=== PATIENT | male | born 1970 | race Caucasian/White ===

== ENCOUNTER 2019-06-27 02:54 | Inpatient (IN) | payer OTHER ==
[~2019-06-27] VITALS: Ht 180.3 cm; Wt 99.8 kg
[2019-06-27 02:54] VITALS: BP 133/105
--- NOTE | 2019-06-27 02:54 | NUR ---
PT BIB [facility], PREBOOK. TAKEN TO CHAIR E
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
--- NOTE | 2019-06-27 03:00 | NUR ---
PT STATED THAT HE DOES NOT KNOW THE NAMES OF THE MEDICATIONS THAT HE TAKES
--- NOTE | 2019-06-27 03:06 | NUR ---
PT MOVED TO BED 11
--- NOTE | 2019-06-27 04:00 | NUR ---
PT LAYING IN BED SLEEPING, AROUSABLE TO NAME, RR EVEN AND UNLABORED. VSS. ALL NEEDS MET.
[2019-06-27 04:06] LABS: BASOPHILS % (AUTO) 0.6 % (0.0-2.0); EOSINOPHILS # (AUTO) 0.1 K/uL (0-0.4); HEMATOCRIT 45.6 % (36-52); HEMOGLOBIN 15.5 g/dL (12.0-18.0); LYMPHOCYTES # (AUTO) 2.1 K/uL (2.0-11.5); LYMPHOCYTES % (AUTO) 32.7 % (20.5-51.1); MEAN CORPUSCULAR HEMOGLOBIN 31 pg (27-31); MEAN CORPUSCULAR HGB CONC 34 g/dL (33-37); MEAN CORPUSCULAR VOLUME 91.2 fL (80-94); MONOCYTES # (AUTO) 0.6 K/uL (0.8-1.0); NEUTROPHILS # (AUTO) 3.6 K/uL (1.8-7.7); NEUTROPHILS % (AUTO) 55.7 % (42.2-75.2); PLATELET COUNT (AUTO) 245 K/uL (140-450); RED CELL DISTRIBUTION WIDTH 13.5 % (11.6-13.7); WHITE BLOOD COUNT (AUTO) 6.6 K/uL (4.8-10.8)
[2019-06-27 04:18] LABS: ANION GAP 16.1 (8-16); CARBON DIOXIDE 22.8 mmol/L (21-32); POTASSIUM 3.9 mmol/L (3.5-5.1)
[2019-06-27 04:24] LABS: ALBUMIN 3.6 g/dL (3.4-5.0); TOTAL BILIRUBIN 0.4 mg/dL (0.0-1.0)
--- NOTE | 2019-06-27 05:10 | NUR ---
PT LAYING IN BED, RR EVEN AND UNLABORED. PT REPORTS 8/10 L SIDED CP WITH NO FACIAL GRIMACING, NO RESTLESSNESS. VSS. ALL NEEDS MET.
[2019-06-27] MEDS ORDERED: diphenhydrAMINE 50 MG/ML VIAL IVP PRN (05:55)
[2019-06-27] MEDS ORDERED: ONDANSETRON 4 MG/2 ML VIAL IVP PRN (05:55)
[2019-06-27] MEDS ORDERED: cloNIDine 0.1 MG TAB PO PRN ×2 (05:55→18:15)
[2019-06-27] MEDS ORDERED: POTASSIUM CHLORIDE 10 MEQ TABER PO PRN (05:55)
[2019-06-27] MEDS ORDERED: MAGNESIUM OXIDE 400 MG TAB PO PRN (05:55)
[2019-06-27] MEDS ORDERED: ACETAMINOPHEN 650 MG SUPP RC PRN (05:55)
[2019-06-27] MEDS ORDERED: ACETAMINOPHEN 325 MG TAB PO PRN (05:55)
[2019-06-27] MEDS ORDERED: IPRATROPIUM 0.02% 0.5 MG/2.5 ML NEBU INH PRN (05:55)
[2019-06-27] MEDS ORDERED: HYDROcodone/APAP 5/325 MG 1 TAB TAB PO PRN ×2 (05:55)
[2019-06-27] MEDS: NACL 0.9% 1,000 ML IV SCH ×2 (05:55→20:13)
[2019-06-27] MEDS ORDERED: ALUMINUM HYD/MAG/SIMETHICONE 30 ML UDC PO PRN (05:55)
[2019-06-27] MEDS ORDERED: LORazepam 2 MG/ML VIAL IVP PRN (05:55)
[2019-06-27] MEDS ORDERED: POTASSIUM CHLORIDE 40 MEQ, LIDOCAINE 1% 25 MG in NACL 0.9% 250 ML IV PRN (05:55)
[2019-06-27] MEDS ORDERED: MAG SULF 2000 MG/WATER PREMIX 50 ML IV PRN (05:55)
[2019-06-27] MEDS ORDERED: MORPHINE SULFATE 2 MG/ML SYR IVP PRN (05:55)
[2019-06-27] MEDS ORDERED: ZOLPIDEM 5 MG TAB PO PRN (05:55)
[2019-06-27] MEDS ORDERED: ALBUTEROL 0.083% 2.5 MG/3 ML NEBU INH PRN (05:55)
[2019-06-27] MEDS ORDERED: BISACODYL 10 MG SUPP RC PRN (05:55)
[2019-06-27] MEDS ORDERED: DOCUSATE SODIUM 250 MG GELCAP PO PRN (05:55)
[2019-06-27] MEDS ORDERED: SODIUM PHOSPHATE 118 ML ENEM RC PRN (05:55)
[2019-06-27] MEDS ORDERED: guaiFENesin DM 200/20 MG-10 ML 10 ML UDC PO PRN (05:55)
--- NOTE | 2019-06-27 06:17 | NUR ---
Patient will be admitted to care of DR NICOLE. Admited to TELE. Will go to room 108A. Belongings list completed. Report to PRINCESS CROOKS.
--- NOTE | 2019-06-27 06:20 | NUR ---
RECEIVED BEDSIDE REPORT FROM ED RN MARICEL, FOR PATIENT'S CONTINUITY OF CARE. PATIENT IS ADMITTED FOR CHEST PAIN AND ETOH DIAGNOSIS. PATIENT IS ALERT, AWAKE, ORIENTED X 4. PATIENT IS ON ROOM AIR, HAS RIGHT FOREARM 20G SALINE LOCK. TROPONIN LEVEL IS NEGATIVE. SPEAKS PRIMARILY ALBANIAN, AND CROATIAN. ALLERGIES TO ATORVASTATIN. PATIENT WAS CHANGED TO YELLOW GOWN AND SOCKS. FALL AND SEIZURE PREVENTION AND PRECAUTION STARTED AND IMPLEMENTED. VITAL SIGNS ARE FF: T 97.7; BP 140/91; O2 96%; HR 83; RR 16. WILL ENDORSE TO AM SHIFT RN FOR CONTINUITY OF CARE.
--- NOTE | 2019-06-27 07:31 | NUR ---
Received bed side report from shift supervisor RN, pt seen sleeping on RA in no resp distress. Will put on IV Fluid NS at 70cc/hr per MD order. Urine sample collected and at bedside. Per shift supervisor RN, she collected it at 0630. MRSA already swapped. Fall risk sign posted, yellow socks on, gown on, will continue to monitor
--- NOTE | 2019-06-27 09:13 | NUR ---
Pt sleeping, arousable. Pt A/O x4. Told pt to pee into specimen cup for urine culture. Pt verbalized understanding, will continue to monitor.
[2019-06-27 10:16] VITALS: BP 125/79
[2019-06-27 11:41] LABS: BARBITURATE, URINE NEG. ng/ml (NEG <=200); BENZODIAZEPINE, URINE NEG. ng/mL (NEG <=200); CANNABINOID, URINE NEG. ng/mL (NEG <=50); COCAINE, URINE NEG. ng/mL (NEG <=300); OPIATE, URINE NEG. ng/mL (NEG <=2000); PHENCYCLIDINE SCREEN,URINE NEG. ng/mL (NEG <=25)
--- NOTE | 2019-06-27 11:49 | NUR ---
Pt's temp 100.3 Checked 3x, will give Tylenol per MD order
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
[2019-06-27 12:00] VITALS: BP 155/86
--- NOTE | 2019-06-27 12:01 | NUR ---
Paged for an order for humalog sliding scale. pt's blood sugar 162
--- NOTE | 2019-06-27 12:48 | NUR ---
Pt's temp now 99.7
[2019-06-27] MEDS ORDERED: METF1000 PO (14:21)
[2019-06-27] MEDS ORDERED: WARF-18 PO (14:21)
[2019-06-27] MEDS ORDERED: ASPI-1677 PO (14:21)
[2019-06-27] MEDS ORDERED: ATOR10TA PO (14:21)
[2019-06-27] MEDS ORDERED: METO25TA PO (14:21)
--- NOTE | 2019-06-27 14:22 | NUR ---
Pt does not clearly remember dosing but does remember meds he takes. Will update med recon.
--- NOTE | 2019-06-27 14:22 | NUR ---
Med Rec not done by ER d/t pt being ETOH in ER. Pt now more awake. A/O X4. Pt told me his home meds that he takes. Per weigh and charge worker Linda, she said to do med recon and page to ask if he still wants to continue home meds. Paged earlier for order for Humalog Sliding Scale. Will page again
[2019-06-27] MEDS ORDERED: INSULIN LISPRO SLIDING SCALE 100 UNITS/ML VIAL SUBQ PRN (14:55)
[2019-06-27] MEDS ORDERED: DEXTROSE 50% 50 ML SYR IVP PRN (14:55)
--- NOTE | 2019-06-27 15:02 | NUR ---
Per , ordered Humalog sliding scale, Abboject, and resuscitation status. Per pt, he wants compression, meds, intubation, BiPAP, but no cardioversion and defib d/t pacemaker.
--- NOTE | 2019-06-27 16:45 | NUR ---
Paged d/t BP 147/97, no home meds transferred by doctor and no prn bp med available at this time. Blood sugar 144. No insulin coverage needed at this time.
[2019-06-27 17:12] VITALS: BP 147/97
--- NOTE | 2019-06-27 18:34 | NUR ---
just ordered clonidine 0.1mg Q6H PRN for systolic >167. Pt's BP 167/96. Will give clonidine.
--- NOTE | 2019-06-27 19:31 | NUR ---
Gave bed side report from production shift supervisor RN. Pt zacarias.
--- NOTE | 2019-06-27 19:32 | NUR ---
RECEIVED BEDSIDE REPORT FROM DAY SHIFT NURSE. NO SOB OR ANY RESPIRATORY DISTRESS NOTED. PATIENT IS ALERT, AWAKE, ORIENTED X 4. PATIENT IS ON ROOM AIR, HAS RIGHT FOREARM 20G, PATENT, INTACT AND ASYMPTOMATIC. SKIN INTACT, WARM AND DRY TO TOUCH. ALLERGIES TO ATORVASTATIN. FALL AND SEIZURE PREVENTION IN PLACE. POC REVIEWED AND DISCUSSED WITH PT. PT VERBALIZED UNDERSTANDING. BOARD UPDATED. BED IN LOW POSITION. CALL LIGHT WITHIN REACH.
[2019-06-27 20:00] VITALS: BP 157/98
--- NOTE | 2019-06-27 20:00 | NUR ---
VS CHECKED, 157/98, 98.2F, 97%, 88, 18, 0/10. WILL CONTINUE TO MONITOR.
--- NOTE | 2019-06-27 22:00 | NUR ---
PT SLEEPING IN BED. NO ACUTE DISTRESS NOTED.
[2019-06-28] VITALS: BP 121/77
--- NOTE | 2019-06-28 | NUR ---
VS CHECKED, 98.0, 121/77, 61, 95%, 0/10, 18. BED IN LOW POSITION. CALL LIGHT WITHIN REACH.
--- NOTE | 2019-06-28 02:20 | NUR ---
PT SLEEPING IN BED. BREATHING EVEN AND UNLABORED.
[2019-06-28 04:00] VITALS: BP 126/81
--- NOTE | 2019-06-28 04:05 | NUR ---
VS CHECKED, WITHIN NORMAL RANGE. NO ACUTE DISTRESS NOTED. WILL CONTINUE TO MONITOR.
--- NOTE | 2019-06-28 06:00 | NUR ---
BS CHECKED. 132, NO INSULIN COVERAGE NEEDED.
--- NOTE | 2019-06-28 07:07 | NUR ---
ENDORSED PT TO DAY SHIFT NURSE. PT IN STABLE CONDITION.
--- NOTE | 2019-06-28 07:08 | NUR ---
RECEIVED REPORT FROM ORDER PROCESSOR NURSE. PATIENT LYING DOWN IN BED SLEEPING, AROUSABLE BY VOICE. NO DISTRESS NOTED. COMPLAINS OF LEFT SHOULDER MUSCLE SORENESS PAIN, TOLERABLE AT THIS TIME. AAOX4, CALM, COOPERATIVE, SKIN COLOR APPROPRIATE TO ETHNICITY. HAS LEFT KNEE BRUISE, SKIN INTACT. IV SITE INTACT, PATENT, AND INFUSING IVF PER MD ORDERS. ABDOMEN SOFT, NON-DISTENDED. REVIEWED PLAN OF CARE WITH PATIENT. PATIENT VERBALIZED UNDERSTANDING. SAFETY MEASURES IN PLACE, CALL LIGHT WITHIN REACH. WILL CONTINUE TO MONITOR.
[2019-06-28 08:00] VITALS: BP 147/89
--- NOTE | 2019-06-28 08:48 | NUR ---
PATIENT HAS BEEN SCREENED AND CATEGORIZED MODERATE NUTRITION RISK. PATIENT WILL BE SEEN WITHIN 3-5 DAYS OF ADMISSION. 06/29/[address]
--- NOTE | 2019-06-28 09:00 | NUR ---
DR. NICOLE AT BEDSIDE REVIEWING PLAN OF CARE WITH PATIENT. WILL CONTINUE TO MONITOR.
[2019-06-28 10:24] LABS: PROTHROMBIN TIME 12.4 secs (10.8-13.4)
[2019-06-28] MEDS: NACL 0.9% 1,000 ML IV SCH (10:46)
--- NOTE | 2019-06-28 11:00 | NUR ---
DR. HEIDY Babcock AT BEDSIDE REVIEWING PLAN OF CARE WITH PATIENT. WILL CONTINUE TO MONITOR.
[2019-06-28] MEDS ORDERED: BLOOD GLUCOSE MONITORING 1 DEV DEV FS SCH (11:30)
[2019-06-28 12:00] VITALS: BP 141/91
--- NOTE | 2019-06-28 12:35 | NUR ---
INSULIN COVERAGE GIVEN FOR LUNCH PER MD ORDERS. PER DR. HEIDY Babcock, PATIENT OK TO GO HOME WITH FOLLOW-UP WITH PATIENT'S OWN NOODLE MAKER. NOTIFIED PATIENT. PER PATIENT LIVES [place] [address] AND WILL WALK HOME WHEN READY DUE TO HIS CAR BEING TOWED. WILL PREPARE DISCHARGE PAPERS AND INSTRUCTION. WILL CONTINUE TO MONITOR.
--- NOTE | 2019-06-28 13:15 | NUR ---
CALLED OFFICE OF DR MONROY [phone] SPOKE TO AMY, FOLLOW-UP APPOINTMENT MADE ON 07/13/19 AT 1015 AM, AT [id number], [place] [address]. SCHEDULE OF APPOINTMENT INFO GIVEN TO PT., VERBALIZED UNDERSTANDING.
--- NOTE | 2019-06-28 13:41 | NUR ---
DISCHARGE INSTRUCTIONS PROVIDED TO PATIENT. INSTRUCTIONS ON FOLLOW-UP VISIT WITH PCP AND AUTOMOTIVE PROJECT ENGINEER, NEW/CHANGED MEDICATIONS, DIET REGIMEN, AND AVOID DRINKING TOO MUCH ETOH PROVIDED. ANSWERED ALL OF PATIENT'S QUESTIONS REGARDING DISCHARGE. IV SITE REMOVED WITH MINIMAL BLOOD AND LUMEN COMPLETELY INTACT. ID BANDS REMOVED. PATIENT TO GET DRESSED THEN DISCHARGE TO HOME VIA AMBULATION. PATIENT REPORT HE WILL WALK HOME HIS HOUSE IS RIGHT [address]OSS [address].
--- NOTE | 2019-06-28 13:50 | NUR ---
PATIENT ALL DRESSED AND READY TO GO. ALL BELONGINGS WITH PATIENT. ESCORTED PATIENT DOWN TO LOBBY VIA STEADY AMBULATION. PATIENT DISCHARGED AT THIS TIME TO HOME IN STABLE CONDITION.
[2019-06-28] MEDS ORDERED: WARFARIN 5 MG TAB PO SCH (17:00)
== END 2019-06-28 13:50 | disposition home or self-care (01) | DRG 198 ==
LOC: MED 02:54 → MTU 05:57
PROVIDERS: ADMIT Internal Medicine; ATTEND Internal Medicine
DX: R07.89 Other chest pain (principal); I25.10 Atherosclerotic heart disease of native coronary artery without angina pectoris; E11.65 Type 2 diabetes mellitus with hyperglycemia; I42.0 Dilated cardiomyopathy; E66.9 Obesity, unspecified; E78.5 Hyperlipidemia, unspecified; F10.10 Alcohol abuse, uncomplicated; I10 Essential (primary) hypertension; Y90.2 Blood alcohol level of 40-59 mg/100 ml; F10.129 Alcohol abuse with intoxication, unspecified; Z95.2 Presence of prosthetic heart valve; Z95.1 Presence of aortocoronary bypass graft; Z68.30 Body mass index [BMI] 30.0-30.9, adult; Z88.8 Allergy status to other drugs, medicaments and biological substances; Z79.82 Long term (current) use of aspirin; Z79.01 Long term (current) use of anticoagulants; Z79.84 Long term (current) use of oral hypoglycemic drugs; Z95.810 Presence of automatic (implantable) cardiac defibrillator
CPT/HCPCS: 36415; 71045; 80053; 80305; 82948; 84484; 85025; 85610; 87081; 93005; 99285; G0482; J1815; J7030; Q0092

== ENCOUNTER 2019-11-25 14:27 | Emergency (ER) | payer OTHER ==
[~2019-11-25] VITALS: Ht 175.3 cm; Wt 98.9 kg
[~2019-11-25 14:27] MED LIST: ASPI-1884 PO; METF1000 PO; METO25TA PO; WARF-18 PO
[2019-11-25 15:00] VITALS: BP 130/90
--- NOTE | 2019-11-25 15:03 | NUR ---
to lobby a/w bed ambulatory
--- NOTE | 2019-11-25 16:33 | NUR ---
PT REPORTING FEELING DIZZY, BROUGHT PT TO [facility] FOR ASSESSMENT, VSS, PT REPORTS 10/10 PAIN IN LT FACE. PLACED PT IN WHEEL CHAIR W/ SEATBELT CONNECTED FOR SAFETY. PT WHEELED BACK TO LOBBY
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
[2019-11-25] MEDS ORDERED: VANCOMYCIN 1,000 MG in DEXTROSE 5% 250 ML IV ONE (17:55)
[2019-11-25] MEDS ORDERED: MORPHINE SULFATE 4 MG/ML SYR IVP ONE (17:55)
[2019-11-25] MEDS ORDERED: PIPERACILLIN/TAZOBACTAM 3.375 GM in DEXTROSE 5% 50 ML IV ONE (17:55)
[2019-11-25] MEDS ORDERED: NACL 0.9% 1,000 ML IV ONE (17:55)
--- NOTE | 2019-11-25 17:59 | NUR ---
PT RESTING IN BED, NO NEW NEEDS AT THIS TIME.
[2019-11-25] MEDS ORDERED: PIPERACILLIN/TAZOBACTAM 3.375 GM VIAL IV ONE (18:16)
[2019-11-25 18:41] LABS: BASOPHILS % (AUTO) 0.3 % (0.0-2.0); EOSINOPHILS % (AUTO) 0.4 % (0.0-4.0); HEMOGLOBIN 15.2 g/dL (12.0-18.0); LYMPHOCYTES # (AUTO) 1.4 K/uL (2.0-11.5); LYMPHOCYTES % (AUTO) 14.8 % (20.5-51.1); MEAN CORPUSCULAR HEMOGLOBIN 30 pg (27-31); MEAN CORPUSCULAR HGB CONC 33 g/dL (33-37); MEAN CORPUSCULAR VOLUME 91.5 fL (80-94); MONOCYTES % (AUTO) 9.9 % (1.7-9.3); NEUTROPHILS # (AUTO) 7.3 K/uL (1.8-7.7); NEUTROPHILS % (AUTO) 74.6 % (42.2-75.2); PLATELET COUNT (AUTO) 233 K/uL (140-450); RED BLOOD CELL COUNT(AUTO) 5.03 MIL/uL (4.20-6.10); RED CELL DISTRIBUTION WIDTH 13.2 % (11.6-13.7); WHITE BLOOD COUNT (AUTO) 9.8 K/uL (4.8-10.8)
[2019-11-25] MEDS ORDERED: VANCOMYCIN 1,000 MG VIAL ONE (18:59)
[2019-11-25 19:00] LABS: ANION GAP 12.5 (8-16); CARBON DIOXIDE 26.2 mmol/L (21-32); POTASSIUM 3.7 mmol/L (3.5-5.1)
[2019-11-25 19:05] LABS: ALBUMIN 3.5 g/dL (3.4-5.0); TOTAL BILIRUBIN 0.7 mg/dL (0.0-1.0)
[2019-11-25 19:07] LABS: PROTHROMBIN TIME 16.4 secs (10.8-13.4)
--- NOTE | 2019-11-25 19:09 | NUR ---
PT SIGNED TRANSFER CONSENT
--- NOTE | 2019-11-25 19:30 | NUR ---
Patient to be transferred to [facility]. Is being transferred due to NEED FOR ENT/HIGHER LEVEL OF CARE. Receiving facility has accepting physician and available space. ER physician has signed transfer form. Patient or responsible green party has agreed to transfer and signed form. Patient belongings inventoried and will be sent with patient. Copy of nursing notes, lab reports, EKG, Physicians Orders and X-rays to be sent with patient. Report called to VALERIY DEAN at receiving facility.
--- NOTE | 2019-11-25 19:30 | NUR ---
Note undone in EDM - 11/25/19 at 1949 by MED1 Patient to be transferred to [facility]. Is being transferred due to INSURANCE. Receiving facility has accepting physician and available space. ER physician has signed transfer form. Patient or responsible democrat has agreed to transfer and signed form. Patient belongings inventoried and will be sent with patient. Copy of nursing notes, lab reports, EKG, Physicians Orders and X-rays to be sent with patient. Report called to VALERIY DEAN at receiving facility.
[2019-11-25 19:45] LABS: APPEARANCE,URINE CLEAR (CLEAR); BILIRUBIN,URINE NEGATIVE (NEGATIVE); BLOOD, URINE NEGATIVE (NEGATIVE); COLOR,URINE YELLOW (YELLOW); LEUKOCYTE ESTERASE ,URINE NEGATIVE (NEGATIVE); NITRITE, URINE NEGATIVE (NEGATIVE); UGLUCOSE 3+ (NEGATIVE)
[2019-11-25 19:47] VITALS: BP 154/80
== END 2019-11-25 19:30 | disposition short-term general hospital (02) ==
LOC: MED 14:27
DX: K04.7 Periapical abscess without sinus (principal); L03.211 Cellulitis of face; E11.9 Type 2 diabetes mellitus without complications; I10 Essential (primary) hypertension; E78.5 Hyperlipidemia, unspecified; Z86.69 Personal history of other diseases of the nervous system and sense organs; Z95.0 Presence of cardiac pacemaker; Z79.82 Long term (current) use of aspirin; Z79.899 Other long term (current) drug therapy; Z79.01 Long term (current) use of anticoagulants; Z88.8 Allergy status to other drugs, medicaments and biological substances
CPT/HCPCS: 36415; 80053; 81003; 83605; 85025; 85610; 85730; 87040; 87086; 96365; 96368; 96375; 99285; J2270; J2543; J3370; J7030

== ENCOUNTER 2022-05-02 04:40 | Emergency (ER) | payer OTHER ==
[~2022-05-02] VITALS: Ht 175.3 cm; Wt 108.9 kg
[~2022-05-02 04:40] MED LIST changes: +ASPI-1749 PO; -ASPI-1884 PO; +METF-1274 PO; -METF1000 PO; -WARF-18 PO; +WARF-83 PO
--- NOTE | 2022-05-02 04:40 | NUR ---
PT [facility], PREBOOK. TAKEN TO BED 10
[2022-05-02 04:48] VITALS: BP 145/77
[2022-05-02] MEDS ORDERED: NACL 0.9% 1,000 ML IV ONE (05:00)
--- NOTE | 2022-05-02 05:02 | NUR ---
Dr. Abreu examining patient.
[2022-05-02 05:41] LABS: BASOPHILS # (AUTO) 0.1 K/uL (0.00-0.22); EOSINOPHILS # (AUTO) 0.1 K/uL (0-0.4); EOSINOPHILS % (AUTO) 2.1 % (0.0-4.0); HEMATOCRIT 44.9 % (36-52); HEMOGLOBIN 15.1 g/dL (12.0-18.0); LYMPHOCYTES # (AUTO) 1.8 K/uL (2.0-11.5); LYMPHOCYTES % (AUTO) 31.2 % (20.5-51.1); MEAN CORPUSCULAR HEMOGLOBIN 30 pg (27-31); MEAN CORPUSCULAR HGB CONC 34 g/dL (33-37); MEAN CORPUSCULAR VOLUME 90.3 fL (80-94); MONOCYTES # (AUTO) 0.5 K/uL (0.8-1.0); MONOCYTES % (AUTO) 7.9 % (1.7-9.3); NEUTROPHILS # (AUTO) 3.4 K/uL (1.8-7.7); NEUTROPHILS % (AUTO) 57.8 % (42.2-75.2); PLATELET COUNT (AUTO) 237 K/uL (140-450); RED BLOOD CELL COUNT(AUTO) 4.97 MIL/uL (4.20-6.10); RED CELL DISTRIBUTION WIDTH 13.3 % (11.6-13.7); WHITE BLOOD COUNT (AUTO) 5.9 K/uL (4.8-10.8)
[2022-05-02 05:44] LABS: ALBUMIN 3.8 g/dL (3.4-5.0); ANION GAP 14.2 (8-16); CARBON DIOXIDE 25.8 mmol/L (21-32); TOTAL BILIRUBIN 0.3 mg/dL (0.0-1.0)
[2022-05-02 05:47] LABS: BARBITURATE, URINE NEGATIVE ng/ml (NEG <=200); BENZODIAZEPINE, URINE NEGATIVE ng/mL (NEG <=200); CANNABINOID, URINE NEGATIVE ng/mL (NEG <=50); COCAINE, URINE NEGATIVE ng/mL (NEG <=300); OPIATE, URINE NEGATIVE ng/mL (NEG <=2000); PHENCYCLIDINE SCREEN,URINE NEGATIVE ng/mL (NEG <=25)
[2022-05-02 06:53] VITALS: BP 146/78
--- NOTE | 2022-05-02 06:57 | NUR ---
DC INSTRUCTIONS TO PT AND OFFICER WITH FULL RETURNED VERBAL UNDERSTANDING. IV DC'D, CATHETER INTACT. SMALL PRESSURE DRESSING APPLIED. PT AMBULATES IN HANDCUFFS WITH STEADY GAIT, ACCOMPANIED BY OFFICER.
== END 2022-05-02 06:47 ==
LOC: MED 04:40
DX: F10.129 Alcohol abuse with intoxication, unspecified (principal); E11.65 Type 2 diabetes mellitus with hyperglycemia; Z79.4 Long term (current) use of insulin; I25.10 Atherosclerotic heart disease of native coronary artery without angina pectoris; I10 Essential (primary) hypertension; Z02.79 Encounter for issue of other medical certificate; Z95.1 Presence of aortocoronary bypass graft; Z79.84 Long term (current) use of oral hypoglycemic drugs
CPT/HCPCS: 36415; 80053; 80305; 85025; 96360; 96361; 99283; G0482; J7030